=== PATIENT | male | born 1950 | race Asian ===

== ENCOUNTER 2017-09-21 12:07 | Outpatient (CLI) | payer BC ==
[~2017-09-21 12:07] MED LIST: CIPRO500 MG PO; LAC-HYDRIN121 EX; MELOXICAM7.5 MG OR; NIFE30TA PO
== END 2017-09-21 19:38 | disposition home or self-care (01) ==
LOC: RAD 12:07
DX: M72.2 Plantar fascial fibromatosis (principal)

== ENCOUNTER → 2018-12-03 11:43 | Outpatient (CLI) | payer BC | END | disposition home or self-care (01) | LOC: AMB 11:43 | DX: R29.810 Facial weakness (principal); R47.81 Slurred speech; R42 Dizziness and giddiness; T67.0XXA Heatstroke and sunstroke, initial encounter ==

== ENCOUNTER 2018-12-03 11:59 | Emergency (ER) | payer BC ==
[~2018-12-03] VITALS: Ht 180.3 cm; Wt 81.7 kg
[2018-12-03 11:59] VITALS: BP 166/88; TEMP 97.3
[2018-12-03 12:17] LABS: PLATELET COUNT 211 K/uL (142-355)
[2018-12-03 12:32] LABS: POTASSIUM 3.6 mmol/L (3.6-5.2); SODIUM 140 mmol/L (136-145)
== END 2018-12-03 14:59 | disposition short-term general hospital (02) ==
LOC: ED 11:59
PROVIDERS: Emergency Medicine
DX: I63.9 Cerebral infarction, unspecified (principal); T67.5XXA Heat exhaustion, unspecified, initial encounter; X30.XXXA Exposure to excessive natural heat, initial encounter; Y93.H9 Activity, other involving exterior property and land maintenance, building and construction; Y92.096 Garden or yard of other non-institutional residence as the place of occurrence of the external cause
CPT/HCPCS: 36415; 80053; 82550; 82553; 84484; 85027; 93005; 96365; 99284

== ENCOUNTER 2018-12-03 15:05 | Outpatient (CLI) | payer BC | END 2018-12-03 16:20 | disposition short-term general hospital (02) | LOC: AMB 15:05 | DX: R53.1 Weakness (principal); I63.89 Other cerebral infarction; R29.810 Facial weakness | CPT/HCPCS: A0425; A0427 ==

== ENCOUNTER 2020-07-06 09:02 | Inpatient (IN) | payer BC ==
[2020-07-06] VITALS (10 sets, daily range): BP systolic 146–164; BP diastolic 63–72; TEMP 98–99.1; Ht 180.3 cm; Wt 75.0 kg
[~2020-07-06] VITALS: Ht 180.3 cm; Wt 75.0 kg
[2020-07-06 10:20] LABS: PLATELET COUNT 284 K/uL (142-355); POTASSIUM 3.7 mmol/L (3.6-5.2); SODIUM 132 mmol/L (136-145)
[2020-07-06] MEDS ORDERED: ELIQUIS5 MG PO (19:06)
[2020-07-06] MEDS ORDERED: AMIODARONE HYD200 MG PO (19:09)
[2020-07-06] MEDS ORDERED: LIPITOR40 MG PO (19:09)
[2020-07-06] MEDS ORDERED: NIFE30TA PO (19:10)
[2020-07-07 04:00] VITALS: BP 150/71; TEMP 98.6
[2020-07-07 08:06] VITALS: BP 145/66; TEMP 98.1
[2020-07-07 09:13] LABS: PLATELET COUNT 283 K/uL (142-355)
[2020-07-07 09:18] LABS: POTASSIUM 4.1 mmol/L (3.6-5.2)
[2020-07-07 12:00] VITALS: BP 151/67; TEMP 97.6
[2020-07-07 16:00] VITALS: BP 173/68; TEMP 97.5
[2020-07-07 19:49] VITALS: BP 164/74; TEMP 98.6
[2020-07-07 23:37] VITALS: BP 158/73; TEMP 97.8
[2020-07-08 03:54] VITALS: BP 153/63; TEMP 97.9
[2020-07-08 05:51] LABS: PLATELET COUNT 312 K/uL (142-355)
[2020-07-08 06:46] LABS: POTASSIUM 4.2 mmol/L (3.6-5.2)
[2020-07-08 08:00] VITALS: BP 140/66; TEMP 97.8
[2020-07-08] MEDS ORDERED: CEFDINIR300 MG PO (11:16)
[2020-07-08] MEDS ORDERED: ZITHROMAX500 MG PO (11:17)
[2020-07-08 12:00] VITALS: BP 140/66; TEMP 97.8
== END 2020-07-08 14:25 | disposition home or self-care (01) | DRG 193 ==
LOC: ED 09:02 → MED/SURG 14:50
PROVIDERS: ADMIT Family Medicine; ATTEND Internal Medicine Endocrinology, Diabetes & Metabolism
DX: J18.8 Other pneumonia, unspecified organism (principal); J96.01 Acute respiratory failure with hypoxia; J90 Pleural effusion, not elsewhere classified; I10 Essential (primary) hypertension; E78.49 Other hyperlipidemia; Z86.73 Personal history of transient ischemic attack (TIA), and cerebral infarction without residual deficits
CPT/HCPCS: 36415; 80048; 80053; 82728; 83605; 84484; 85027; 85379; 87040; 87635; 93005; 96365; 99284; J0456; J0696; J1100; J1650; J3490; Q9963; U0003

== ENCOUNTER 2020-07-25 08:48 | Outpatient (CLI) | payer BC ==
[~2020-07-25 08:48] MED LIST changes: +AMIODARONE HYD200 MG PO; +CEFDINIR300 MG PO; +ELIQUIS5 MG PO; +LIPITOR40 MG PO; +ZITHROMAX500 MG PO
[2020-07-25 09:20] LABS: PLATELET COUNT 172 K/uL (142-355)
[2020-07-25 09:25] LABS: POTASSIUM 3.8 mmol/L (3.6-5.2)
== END 2020-07-25 19:53 | disposition home or self-care (01) ==
LOC: RAD 08:48
PROVIDERS: ATTEND Internal Medicine
DX: J41.0 Simple chronic bronchitis (principal); I10 Essential (primary) hypertension
CPT/HCPCS: 36415; 80053; 85027

== ENCOUNTER 2020-09-15 15:57 | Emergency (ER) | payer BC, OTHER ==
[~2020-09-15] VITALS: Ht 180.3 cm; Wt 74.8 kg
[2020-09-15 16:12] VITALS: BP 167/62; TEMP 97.4
[2020-09-15 16:42] LABS: PLATELET COUNT 268 K/uL (142-355)
[2020-09-15 16:52] LABS: POTASSIUM 3.8 mmol/L (3.6-5.2); SODIUM 134 mmol/L (136-145)
[2020-09-15 17:02] LABS: PARTIAL THROMBOPLASTIN TIME 29.5 SECONDS (24.5-33.6)
== END 2020-09-15 17:48 | disposition home or self-care (01) ==
LOC: ED 15:57
PROVIDERS: Hospitalist
DX: I50.9 Heart failure, unspecified (principal); R60.9 Edema, unspecified; Z20.828 Contact with and (suspected) exposure to other viral communicable diseases
CPT/HCPCS: 80053; 82550; 83880; 84484; 85027; 85610; 85730; 87502; 87635; 87651; 93005; 96374; 99284; J1940; U0003

== ENCOUNTER 2021-04-13 14:46 | Emergency (ER) | payer BC, OTHER ==
[~2021-04-13] VITALS: Ht 180.3 cm; Wt 74.8 kg
[2021-04-13 14:59] VITALS: BP 168/53; TEMP 98.3
[2021-04-13 15:57] LABS: PLATELET COUNT 144 K/uL (142-355)
[2021-04-13 16:06] LABS: POTASSIUM 3.6 mmol/L (3.6-5.2)
== END 2021-04-13 16:48 | disposition home or self-care (01) ==
LOC: ED 14:46
PROVIDERS: Family Medicine
DX: R19.7 Diarrhea, unspecified (principal); N18.9 Chronic kidney disease, unspecified
CPT/HCPCS: 80053; 81000; 82150; 82272; 83690; 85027; 99283

== ENCOUNTER 2021-05-21 08:53 | Outpatient (CLI) | payer BC ==
[2021-05-21 09:35] LABS: PLATELET COUNT 140 K/uL (142-355)
== END 2021-05-21 21:52 | disposition home or self-care (01) ==
LOC: LABW 08:53
PROVIDERS: ATTEND Internal Medicine
DX: I10 Essential (primary) hypertension (principal); I48.91 Unspecified atrial fibrillation; Z12.5 Encounter for screening for malignant neoplasm of prostate
CPT/HCPCS: 36415; 80053; 80061; 81000; 84153; 84439; 84443; 85027

== ENCOUNTER 2021-12-31 08:48 | Emergency (ER) | payer BC ==
[~2021-12-31] VITALS: Ht 180.3 cm; Wt 77.1 kg
[2021-12-31 08:58] VITALS: BP 180/126; TEMP 98.6
[2021-12-31 09:37] LABS: PLATELET COUNT 139 K/uL (142-355)
[2021-12-31 09:43] LABS: POTASSIUM 4.1 mmol/L (3.6-5.2)
== END 2021-12-31 12:23 | disposition home or self-care (01) ==
LOC: ED 08:48
PROVIDERS: Emergency Medicine Emergency Medical Services
DX: K52.89 Other specified noninfective gastroenteritis and colitis (principal)
CPT/HCPCS: 80048; 81000; 83735; 85027; 87651; 96365; 99284

== ENCOUNTER 2022-10-19 21:16 | Emergency (ER) | payer BC ==
[~2022-10-19] VITALS: Ht 180.3 cm; Wt 78.0 kg
[2022-10-19 22:15] VITALS: BP 145/55; TEMP 98.2
== END 2022-10-19 22:15 | disposition home or self-care (01) ==
LOC: ED 21:16
DX: R19.7 Diarrhea, unspecified (principal)
CPT/HCPCS: 99282

== ENCOUNTER 2022-10-23 10:00 | Emergency (ER) | payer BC ==
[~2022-10-23] VITALS: Ht 180.3 cm; Wt 78.0 kg
[2022-10-23 10:03] VITALS: TEMP 98.4
[2022-10-23 11:52] VITALS: BP 139/71
== END 2022-10-23 11:53 | disposition home or self-care (01) ==
LOC: ED 10:00
DX: S33.5XXA Sprain of ligaments of lumbar spine, initial encounter (principal); S13.4XXA Sprain of ligaments of cervical spine, initial encounter; M43.17 Spondylolisthesis, lumbosacral region; V54.5XXA Driver of pick-up truck or van injured in collision with heavy transport vehicle or bus in traffic accident, initial encounter; Y92.89 Other specified places as the place of occurrence of the external cause
CPT/HCPCS: 99283